=== PATIENT | female | born 1980 | race Hispanic/Latino ===

== ENCOUNTER 2017-07-21 05:32 | Inpatient (IN) ==
[2017-07-21] MEDS ORDERED: KEFZOL 1 GM/D5W 1 GM/50 ML IVPB IV PRN (05:37)
[2017-07-21] MEDS ORDERED: ZOFRAN IV PRN (05:37)
[2017-07-21] MEDS ORDERED: PEPCID IV PRN (05:37)
[2017-07-21] MEDS ORDERED: STADOL IV PRN (05:37)
[2017-07-21] MEDS ORDERED: PEPCID PO PRN (05:37)
[2017-07-21] MEDS ORDERED: TYLENOL PO PRN (05:37)
[2017-07-21] MEDS ORDERED: PITOCIN 30 UNITS/LR 30 UNITS/500 ML IV.SOLN IV SCH (05:37)
[2017-07-21] MEDS ORDERED: SODIUM CHLORIDE 0.9% INJ SCH (05:45)
[2017-07-21] MEDS: LR 1,000 ML IV SCH ×2 (07:20→09:00)
[2017-07-21 07:39] LABS: URINE SOURCE VOIDED
[2017-07-21 07:39] LABS: MANUAL DIFF NEEDED? NO
[2017-07-21 07:44] LABS: BASO% 0.1 % (0.0-0.8); EOS# 0.04 X1000 (0.0-0.7); EOS% 0.5 % (0.0-10.0); IMM GRAN# 0.02 X1000 (0.0-0.04); IMM GRAN% 0.2 % (0.0-0.5); LYMPH# 1.62 X1000 (1.2-3.4); MCH 31.6 PG (27-31); MCHC 33.3 g/dL (33-37); MCV 94.9 FL (81-99); MONO# 0.63 X1000 (0.11-0.59); MONO% 7.4 % (1.7-9.3); MPV 11.3 FL (7.4-10.4); NEUT% 72.8 % (42.2-75.2); PLT 160 X1000 (130-400); RBC 4.11 XMIL (4.2-5.4)
[2017-07-21 07:49] LABS: UR AMPHETAMINES QUAL NONE DETECTED (NONE DETECT); UR BARBITUATES QUAL NONE DETECTED (NONE DETECT); UR BENZODIAZEPIN QUAL NONE DETECTED (NONE DETECT); UR CANNABINOIDS QUAL NONE DETECTED (NONE DETECT); UR COCAINE QUAL NONE DETECTED (NONE DETECT); UR MDMA QUAL NONE DETECTED (NONE DETECT); UR METHADONE QUAL NONE DETECTED (NONE DETECT); UR METHAMPHETAMINE QUAL NONE DETECTED (NONE DETECT); UR OPIATES QUAL NONE DETECTED (NONE DETECT); UR OXYCODONE QUAL NONE DETECTED (NONE DETECT); UR PCP QUAL NONE DETECTED (NONE DETECT); UR TCA QUAL NONE DETECTED (NONE DETECT)
[2017-07-21 08:09] LABS: BILIRUBIN URINE NEGATIVE (NEGATIVE); BLOOD URINE 1+ (NEGATIVE); CLARITY CLEAR (CLEAR); COLOR YELLOW; GLUCOSE URINE NEGATIVE (NEGATIVE); LEUKOCYTES URINE 2+ (NEGATIVE); NITRITE URINE NEGATIVE (NEGATIVE); PH URINE 6.5; PROTEIN URINE TRACE mg/dL (NEGATIVE); SP GRAVITY URINE 1.015; UROBILINOGEN URINE NORMAL
[2017-07-21] MEDS ORDERED: FENTANYL-BUPIV-NS 2 MCG-0.1% 200 ML EPIDURAL PRN (08:17)
[2017-07-21] MEDS ORDERED: MINERAL OIL TOP ONE (13:04)
[2017-07-21] MEDS ORDERED: XYLOCAINE-MPF 1% INJ ONE (13:05)
[2017-07-21] MEDS ORDERED: MOTRIN PO PRN (15:32)
[2017-07-21] MEDS ORDERED: AMBIEN PO PRN (15:32)
[2017-07-21] MEDS ORDERED: PITOCIN 20 UNITS/LR 20 UNITS/1,000 ML IV.SOLN IV SCH (15:32)
[2017-07-21] MEDS ORDERED: PERI MEDS (DERMOPLAST/NUPERCAINAL/TUCKS) MISC PRN (15:32)
[2017-07-21] MEDS ORDERED: XYLOCAINE-MPF 1% INJ PRN (15:32)
[2017-07-21] MEDS ORDERED: MINERAL OIL PO PRN (15:32)
[2017-07-21] MEDS ORDERED: HYDROXYZINE PO PRN (15:32)
[2017-07-21] MEDS ORDERED: CYTOTEC PO PRN (15:32)
[2017-07-21] MEDS ORDERED: NORCO-5 PO PRN (15:32)
[2017-07-21] MEDS ORDERED: BENADRYL IV PRN (15:32)
[2017-07-21] MEDS ORDERED: PITOCIN IM PRN (15:32)
[2017-07-21] MEDS ORDERED: BENADRYL PO PRN (15:32)
[2017-07-21] MEDS ORDERED: PITOCIN 30 UNITS/LR 30 UNITS/500 ML IV.SOLN IV ONE (15:32)
[2017-07-21] MEDS ORDERED: HYDROXYZINE IM PRN (15:32)
[2017-07-21] MEDS ORDERED: M-M-R II VACCINE SUBQ ONE (15:32)
[2017-07-21] MEDS ORDERED: NORCO-10 PO PRN (15:32)
[2017-07-21] MEDS ORDERED: BOOSTRIX VACCINE IM ONE (15:32)
--- NOTE | 2017-07-21 15:51 | OPERATIVE NOTE ---
PROCEDURE DATE: 07/21/2017 PREDELIVERY DIAGNOSES: 1. Intrauterine at term for labor induction. 2. Late care. POST DELIVERY DIAGNOSES: 1. Intrauterine at term for labor induction. 2. Late care. PROCEDURE: Vacuum-assisted vaginal delivery. PHYSICIAN: Cleveland Samson MD. ANESTHESIA: Epidural with Dr. Osborn. FINDINGS: Viable female infant, 8 pounds 2 ounces, 8 and 10 Apgars. No lacerations or tears. Count was correct. DESCRIPTION OF PROCEDURE: Ms. Vinson is a 36-year-old who was admitted early this morning for labor induction. She received Pitocin and was artificially ruptured. Received epidural anesthesia. Reached complete and began pushing. She pushed for approximately an hour with no progress. Epidural was turned off. She was sat up. Soon after, she started experiencing pressure sensation, pushing again. Became exhausted. Requested vacuum. was occiput anterior at +3 station, so a vacuum was applied, 550 mmHg pressure, and with the next contraction infant delivered occiput anterior. Once head delivered, shoulders delivered with moderate difficulty, and infant was placed on mother's abdomen. Cord was doubly clamped and cut and care of was taken over by nursery personnel. Cord blood was obtained. The cord was inspected and found to have 3 vessels. Then gentle traction resulted in delivery of the placenta after approximately 3 minutes. It was inspected and then discarded. Inspection of the perineum and vagina did not reveal any lacerations. There were no clots. No foreign material. So at this point, the procedure was completed. All counts were correct. ESTIMATED BLOOD LOSS: 100 mL. PLAN: Expect routine . cc: Cleveland Samson MD
[2017-07-22] MEDS: PERICOLACE PO SCH ×2 (05:53→20:33)
[2017-07-22 06:22] LABS: MANUAL DIFF NEEDED? NO
[2017-07-22 06:35] LABS: BASO% 0.1 % (0.0-0.8); EOS# 0.12 X1000 (0.0-0.7); EOS% 1.3 % (0.0-10.0); HEMATOCRIT 34.6 % (37.0-47.0); HEMOGLOBIN 11.3 g/dL (12.0-16.0); IMM GRAN# 0.03 X1000 (0.0-0.04); IMM GRAN% 0.3 % (0.0-0.5); LYMPH# 2.21 X1000 (1.2-3.4); LYMPH% 23.1 % (20.5-51.1); MCH 31.5 PG (27-31); MCHC 32.7 g/dL (33-37); MCV 96.4 FL (81-99); MONO# 0.74 X1000 (0.11-0.59); MONO% 7.7 % (1.7-9.3); MPV 11.9 FL (7.4-10.4); NEUT% 67.5 % (42.2-75.2); PLT 141 X1000 (130-400); RBC 3.59 XMIL (4.2-5.4)
[2017-07-22] MEDS ORDERED: PRECARE PO SCH (09:00)
== END 2017-07-23 12:40 | disposition home or self-care (01) ==
LOC: P.LD 05:32
PROVIDERS: ADMIT Obstetrics & Gynecology; ATTEND Obstetrics & Gynecology